=== PATIENT | female | born 1985 | race Caucasian/White ===

== ENCOUNTER 2017-01-09 12:19 | Emergency (ER) | payer OTHER ==
[2017-01-09] MEDS ORDERED: ONDANSETRON 4 MG/2 ML VIAL IVP ONE (12:49)
[2017-01-09] MEDS ORDERED: NS 1,000 ML IV ONE (12:49)
[2017-01-09] MEDS ORDERED: fentaNYL 100 MCG/2 ML INJ IVP ONE (12:52)
[2017-01-09 13:11] VITALS: PULSE 72; RESP 16
[2017-01-09 13:19] LABS: % IMMATURE GRANULYOCYTES 0.4 % (0.0-1.1); ABSOLUTE IMMATURE GRANULOCYTES 0.03 10^3/uL (0.00-0.10); ADD DIFF? NO; ADD MORPH? NO; ADD SCAN? NO; ATYPICAL LYMPHOCYTE FLAG 90 (0-99); FRAGMENT RBC FLAG 0 (0-99); HEMATOCRIT 41.6 % (38.0-47.0); HEMOGLOBIN 15.2 g/dL (12.6-16.3); LEFT SHIFT FLG 0 (0-99); LIPEMIA HEMOLYSIS FLAG 90 (0-99); MEAN CELL HEMOGLOBIN 32.8 pg (27.9-34.1); MEAN CELL HEMOGLOBIN CONCENTR. 36.5 g/dL (32.4-36.7); MEAN CELL VOLUME 89.7 fL (81.5-99.8); MEAN PLATELET VOLUME 9.6 fL (8.7-11.7); PLATELET CLUMPS FLAG 0 (0-99); PLATELET COUNT 275 10^3/uL (150-400); RED BLOOD CELL COUNT 4.64 10^6/uL (4.18-5.33); RED CELL DISTRIBUTION WIDTH 12.3 % (11.5-15.2)
--- NOTE | 2017-01-09 13:24 | EDPHY ---
H & P Stated Complaint: c/o N/D/ lower abd cramping since Sat Time Seen by Provider: 01/09/17 12:45 HPI/ROS: Chief Complaint: Bloody diarrhea HPI: 31-year-old woman presenting with bloody diarrhea for the past several days. Patient returned from [place] 3 days ago. She has had multiple episodes of bloody diarrhea per day. Some abdominal cramping, no fevers or chills. Some nausea no vomiting. No lightheadedness or fainting. No urinary urgency or frequency. Is tolerating some fluids. ROS: 10 point Review of Systems is negative except as noted in the HPI. PMH: Depression Medications: Oral contraception, Lexapro Allergies: No known drug allergies Social History: No smoking, rare alcohol, no recreational drug use Family History: non-contributory Physical Exam: Gen: Awake, Alert, No Distress HEENT: Nose: no rhinorrhea Eyes: PERRLA, EOMI Mouth: Dry mucosa Neck: Supple, no JVD Chest: nontender, lungs clear to auscultation Heart: S1, S2 normal, no murmur Abd: Soft, mild generalized tenderness, nonfocal, no guarding Back: no CVA tenderness, no midline tenderness Ext: no edema, non-tender Skin: no rash Neuro: CN II-XII intact, Sensation grossly intact, Strength 5/5 in bilateral upper and lower extremities - Personal History LMP (Females 10-55): Extended Cycle BCP/Inj Current Tetanus Diphtheria and Acellular Pertussis (TDAP): Yes - Medical/Surgical History Other PMH: depression - Social History Smoking Status: Never smoked Constitutional: Initial Vital Signs Temperature (C) 37.2 C 01/09/17 12:27 Heart Rate 73 01/09/17 12:27 Respiratory Rate 18 01/09/17 12:27 Blood Pressure 150/95 H 01/09/17 12:27 O2 Sat (%) 97 01/09/17 12:27 O2 Delivery Mode Room Air Allergies/Adverse Reactions: No Known Allergies Allergy (Verified 01/09/17 13:28) Home Medications: Medication Instructions Recorded Effexor 01/09/17 LaMICtal 01/09/17 Lexapro 01/09/17 Medical Decision Making ED Course/Re-evaluation: Patient was presenting with traveler's diarrhea for the past several days. She did give a stool sample here but there it is not bloody or loose. She has abdominal cramping but a very benign abdominal exam. Will place an IV, give IV fluids, check electrolytes and reassess. She will also be given ondansetron and fentanyl for her cramping. Patient is feeling improved. Blood work is normal. She is not having any further hemorrhagic diarrhea. I am going to hold off on antibiotics at this time. She will return for any concerns. - Data Points Laboratory Results: Laboratory Results 01/09/17 13:03 01/09/17 13:03 01/09/17 01/09/17 01/09/17 13:03 13:03 13:03 WBC 8.40 10^3/uL 10^3/uL (3.80-9.50) RBC 4.64 10^6/uL 10^6/uL (4.18-5.33) Hgb 15.2 g/dL g/dL (12.6-16.3) Hct 41.6 % % (38.0-47.0) MCV 89.7 fL fL (81.5-99.8) MCH 32.8 pg pg (27.9-34.1) MCHC 36.5 g/dL g/dL (32.4-36.7) RDW 12.3 % % (11.5-15.2) Plt Count 275 10^3/uL 10^3/uL (150-400) MPV 9.6 fL fL (8.7-11.7) Neut % (Auto) 59.4 % % (39.3-74.2) Lymph % (Auto) 31.2 % % (15.0-45.0) [place] % (Auto) 8.5 % % (4.5-13.0) Eos % (Auto) 0.0 % L % (0.6-7.6) Baso % (Auto) 0.5 % % (0.3-1.7) Nucleat RBC Rel Count 0.0 % % (0.0-0.2) Absolute Neuts (auto) 5.00 10^3/uL 10^3/uL (1.70-6.50) Absolute Lymphs (auto) 2.62 10^3/uL 10^3/uL (1.00-3.00) Absolute Monos (auto) 0.71 10^3/uL 10^3/uL (0.30-0.80) Absolute Eos (auto) 0.00 10^3/uL L 10^3/uL (0.03-0.40) Absolute Basos (auto) 0.04 10^3/uL 10^3/uL (0.02-0.10) Absolute Nucleated RBC 0.00 10^3/uL 10^3/uL (0-0.01) Immature Gran % 0.4 % % (0.0-1.1) Immature Gran # 0.03 10^3/uL 10^3/uL (0.00-0.10) Sodium 138 mEq/L mEq/L (134-144) Potassium 4.6 mEq/L mEq/L (3.5-5.2) Chloride 106 mEq/L mEq/L (97-110) Carbon Dioxide 20 mEq/l L mEq/l (22-31) Anion Gap 12 mEq/L mEq/L (8-16) BUN 11 mg/dL mg/dL (7-23) Creatinine 0.8 mg/dL mg/dL (0.6-1.0) Estimated GFR > 60 Glucose 86 mg/dL mg/dL (70-100) Calcium 10.0 mg/dL mg/dL (8.5-10.4) Beta HCG, Qual NEGATIVE Medications Given: Discontinued Medications Fentanyl (Sublimaze) 50 mcg IVP EDNOW ONE Stop: 01/09/17 12:53 Last Admin: 01/09/17 13:25 Dose: 50 mcg Hyoscyamine Sulfate (Levsin, Hyomax-Sl) 0.125 mg PO EDNOW ONE Stop: 01/09/17 13:45 Last Admin: 01/09/17 13:49 Dose: 0.125 mg Sodium Chloride (Ns) 1,000 mls @ 0 mls/hr IV ONCE ONE PRN Reason: Wide Open Stop: 01/09/17 12:50 Last Admin: 01/09/17 13:04 Dose: 1,000 mls Ondansetron HCl (Zofran) 4 mg IVP EDNOW ONE Stop: 01/09/17 12:50 Last Admin: 01/09/17 13:25 Dose: 4 mg Departure - Departure Disposition: Home, Routine, Self-Care Clinical Impression: Traveler's diarrhea Condition: Good Instructions: Traveler's Diarrhea (ED) Additional Instructions: Drink plenty of fluids. Follow up with primary care physician in 2-3 days if symptoms are not improving. Return emergency depart for increasing pain, return of bloody diarrhea, fevers, chills, or any other concerns. Referrals: [facility] [Outside] - As per Instructions
[2017-01-09 13:29] LABS: ANION GAP 12 mEq/L (8-16); CARBON DIOXIDE 20 mEq/l (22-31); CHLORIDE 106 mEq/L (97-110); CREATININE 0.8 mg/dL (0.6-1.0); GLOMERULAR FILTRATION RATE > 60; GLUCOSE 86 mg/dL (70-100); POTASSIUM 4.6 mEq/L (3.5-5.2); SODIUM 138 mEq/L (134-144)
[2017-01-09] MEDS ORDERED: HYOSCYAMINE SULFATE 0.125 MG TAB PO ONE (13:44)
[2017-01-09] MEDS ORDERED: HYOSCYAMINE SULFATE 0.125 MG TAB ONE (13:46)
[2017-01-09 13:51] VITALS: TEMP 98.8; O2SAT 96
[2017-01-09 14:32] VITALS: BP 129/87
== END 2017-01-09 14:30 | disposition home or self-care (01) ==
LOC: CED 12:19
DX: R19.7 Diarrhea, unspecified (principal)
CPT/HCPCS: 80048-PO; 84703-PO; 85025-PO; 96374; J2405; J3010